=== PATIENT | male | born 1980 | race Two or more races ===

== ENCOUNTER 2016-06-14 21:41 | Emergency (ER) | payer MEDICAID ==
[~2016-06-14] VITALS: Ht 185.4 cm; Wt 99.8 kg
[2016-06-14] MEDS ORDERED: ONDANSETRON HCL 4 MG/2 ML VIAL IV ONE (22:00)
[2016-06-14] MEDS ORDERED: HYDROmorphone HCL 2 MG/ML VL IV ONE ×2 (22:00→22:30)
[2016-06-15 02:44] VITALS: BP 130/67
== END 2016-06-15 02:54 | disposition home or self-care (01) ==
LOC: ER 21:41
DX: S62.346A Nondisplaced fracture of base of fifth metacarpal bone, right hand, initial encounter for closed fracture (principal); W23.0XXA Caught, crushed, jammed, or pinched between moving objects, initial encounter; Y93.89 Activity, other specified; Y99.0 Civilian activity done for income or pay; Y92.69 Other specified industrial and construction area as the place of occurrence of the external cause
CPT/HCPCS: 29125; 73130; 96374; 96375; 96376; 99284; J1170; J2405; J7040; 29515